=== PATIENT | female | born 1975 | race Hispanic/Latino ===

== ENCOUNTER 2018-09-24 00:34 | Emergency (ER) | payer OTHER ==
[~2018-09-24] VITALS: Ht 154.9 cm; Wt 61.2 kg
[2018-09-24] MEDS ORDERED: KETOROLAC TROMETHAMINE 30 MG/ML VIAL IM STA (00:57)
--- NOTE | 2018-09-24 01:40 | Diagnostic Imaging Report ---
Wrist Complete right CPT Code: 45894 Indication: Pain Technique: Three views right wrist obtained. Comparison: None Findings: The osseous structures are well developed and mineralized. No fractures or dislocations. No degenerative changes. No radio-opaque foreign bodies in the soft tissues. IMPRESSION: No osseous abnormality to explain pain. Signed by: Dr. Guanaco Weston MD on 09/24/2018 1:36 AM
== END 2018-09-24 03:26 | disposition home or self-care (01) ==
LOC: FSED 00:34
DX: M25.531 Pain in right wrist (principal); M77.8 Other enthesopathies, not elsewhere classified
CPT/HCPCS: 36415; 84550; 99283